=== PATIENT | female | born 1980 | race Caucasian/White ===

== ENCOUNTER 2019-10-22 14:06 | Outpatient (CLI) | payer OTHER | END 2019-10-22 14:07 | disposition home or self-care (01) | LOC: DTY/OP 14:06 | PROVIDERS: ATTEND Family Medicine | DX: O24.415 Gestational diabetes mellitus in pregnancy, controlled by oral hypoglycemic drugs (principal) | CPT/HCPCS: 97802 ==

== ENCOUNTER 2020-01-09 14:58 | Inpatient (IN) | payer OTHER ==
[2020-01-09 15:36] VITALS: BMI 36.1
[2020-01-09 18:05] LABS: Creatinine, Urine 43.6 mg/dL (47-110)
[2020-01-09 18:34] LABS: ALT (SGPT) 16 U/L (8-55); AST (SGOT) 24 U/L (5-34); Albumin 3.1 g/dL (3.5-5.0); Alkaline Phosphatase 135 U/L (40-110); Anion Gap 14 mmol/L (10-20); BUN (Urea Nitrogen) 15 mg/dL (7.0-18.7); Bilirubin, Total 0.4 mg/dL (0.2-1.2); Calc. Creatinine Clearance 159 mL/min (70-130); Calcium 8.8 mg/dL (7.8-10.44); Carbon Dioxide 21 mmol/L (22-29); Chloride 105 mmol/L (98-107); Estimated GFR-MDRD 78; Globulin 3.3 g/dL (2.4-3.5); Glucose 91 mg/dL (70-105); Potassium 3.8 mmol/L (3.5-5.1); Protein, Total 6.4 g/dL (6.0-8.3); Sodium 136 mmol/L (136-145); Uric Acid 7.1 mg/dL (2.6-6.0)
[2020-01-09] MEDS ORDERED: hydrALAZINE 20 MG/ML VIAL SLOW IVP PRN (18:45)
[2020-01-09] MEDS ORDERED: Ondansetron PF 4 MG/2 ML Vial IVP PRN (18:45)
[2020-01-09] MEDS ORDERED: Lactated Ringer's 1,000 ML IV SCH (19:30)
[2020-01-09] MEDS ORDERED: Bicitra 30 ML UDCUP PO SCH (19:30)
[2020-01-09] MEDS ORDERED: CEFAZOLIN 2 GM in Premix Bag 1 BAG IVPB SCH (19:30)
[2020-01-09 20:52] LABS: Hemoglobin 11.6 g/dL (12.0-16.0); Mean Corpuscular HGB CONC 35.6 g/dL (32.0-36.0); Mean Corpuscular Hemoglobin 30.4 pg (27.0-31.0); Mean Corpuscular Volume 85.3 fL (78.0-98.0); Mean Platelet Volume 9.5 fL (7.4-10.4); Platelet Count 161 thou/uL (130-400); RBC Distribution Width 13.8 % (11.5-14.5); Red Blood Cell (RBC) Count 3.82 mill/uL (4.20-5.40); White Blood Cell (WBC) Count 6.8 thou/uL (4.8-10.8)
[2020-01-09] MEDS ORDERED: Insulin Glargine 10 UNITS in Pre-Filled Syringe 1 EACH SC SCH (21:00)
[2020-01-09 21:30] LABS: Syphilis Antibody Nonreactive (Nonreactive); Syphilis Antibody Index 0.03 S/CO (<1.00 Non-Reactive)
[2020-01-09] MEDS ORDERED: Zolpidem Tartrate 5 MG TAB PO SCH (22:30)
[2020-01-10 00:40] LABS: HBSAg Index 0.18 S/CO (0-0.99); Hep B Surf Ag Non-Reactive S/CO (NonReactive)
--- NOTE | 2020-01-10 05:12 | HP ---
PRIMARY OB: Dr. Ольга Krishnan. CHIEF COMPLAINT: Elevated blood pressures. HISTORY OF PRESENT ILLNESS: The patient is a 39-year-old G4, P2 female with an intrauterine at 38 weeks and a day who presented to Labor and Delivery with complaints of elevated blood pressures at home. The patient reports her repeated blood pressures over several hours had consistently been in the mild range with diastolic pressures in the 90s and occasional systolic pressures in the 140s. The patient came to Labor and Delivery for evaluation. She denies headache currently, chest pain, shortness of breath, nausea, vomiting, diarrhea, constipation, hip problems, knee problems, muscle weakness, vaginal bleeding, leakage of fluid, urinary urgency or frequency, any new rashes. PAST MEDICAL HISTORY: ADHD and general anxiety disorder, also gestational diabetes on Lantus and Humalog. PAST SURGICAL HISTORY: She has had 2 prior C-sections and has had right shoulder surgery and laparoscopic knee surgery. ALLERGIES: NO KNOWN DRUG ALLERGIES. MEDICATIONS: 1. vitamins. 2. Lantus 26 units daily. 3. Humalog 6 to 8 units p.r.n. with elevated blood sugars postprandial. REVIEW OF SYSTEMS: Per HPI. PHYSICAL EXAMINATION: VITAL SIGNS: Blood pressure on initial presentation 133/76, heart rate of 88, respiratory rate 16, and temperature 98.0. However, after couple of hours of observation, patient began spiking pressures into the 140s, 150s over 80s over the course of an hour and a half with the highest blood pressure being 154/86. GENERAL: The patient is alert, oriented, cooperative, and pleasant to interact with. HEAD: Normocephalic and atraumatic. LUNGS: Clear to auscultation bilaterally. HEART: Regular rate and rhythm. ABDOMEN: Gravid, soft, nontender. EXTREMITIES: DTRs are 1 to 2+ without clonus. There is no edema. Negative Lilly sign. heart tracing shows the fetus with a baseline in the 130s with moderate long-term variability, positive 15 x 15 accelerations. Tocometer showing contractions, irregular nature from every minute to 6 minutes, only occasionally felt by the patient. LABORATORY DATA: Labs are significant with a ernevia-ea-fffethkhnu ratio of 0.45. Otherwise, the rest of her labs is unremarkable. White count is 6.8, hemoglobin 11.6, hematocrit 32.6, and platelets 161,000. Sodium 136, potassium 3.8, chloride of 105, bicarb of 21, BUN of 15, creatinine 0.82, uric acid of 7.1, AST of 24, ALT of 16, alkaline phosphatase of 135, and albumin 3.1. Syphilis and hepatitis B surface antigen, nonreactive. ASSESSMENT AND PLAN: The patient is a 39-year-old female with an intrauterine at 38 weeks gestation with a diagnosis of preeclampsia without severe features. The patient is scheduled for repeat next week. However, given this new diagnosis and discussing with Dr. Krishnan, plan now is for the patient to have a tomorrow. The patient will be admitted for blood pressure monitoring and will be prepared for surgery in the morning at 07:30. The patient has been given preeclamptic precautions. Fetus is reactive with a category 1 tracing. Job ID: [id number]
[2020-01-10] MEDS: Lactated Ringer's 1,000 ML IV SCH ×3 (06:28→20:40)
[2020-01-10] MEDS ORDERED: Bicitra 30 ML UDCUP ONE (07:04)
[2020-01-10] MEDS ORDERED: MORPHINE 5 MG/10 ML PF VIAL ONE (07:06)
[2020-01-10] MEDS ORDERED: EPHEDRINE 25 MG/5 ML SYRINGE ONE (07:07)
[2020-01-10] MEDS ORDERED: Oxytocin 10 UNITS/ML VIAL ONE ×2 (07:07→08:44)
[2020-01-10] MEDS ORDERED: Ondansetron PF 4 MG/2 ML Vial ONE (07:07)
[2020-01-10] MEDS ORDERED: FLU VACC QS2019-20(6MOS UP)/PF 60 MCG/0.5 ML SYRINGE IM ONE (09:00)
--- NOTE | 2020-01-10 09:03 | OP ---
DATE OF PROCEDURE: 01/10/2020 PREOPERATIVE DIAGNOSES: 1. A 38-week intrauterine . 2. Previous section x2. 3. Gestational hypertension. 4. Gestational diabetes, insulin controlled. INDICATIONS FOR PROCEDURE: Chriss is a 39-year-old white female patient, who had a planned scheduled for next week at 39 weeks, who presented to Labor and Delivery with elevated blood pressures. She had no symptoms. Laboratory studies essentially within normal limits with diagnosis of gestational hypertension. Decision made to admit overnight for planned the following morning. PROCEDURE PERFORMED: Repeat low-transverse section. POT PUNCHER: Dr. Ross, followed by Dr. Farooq. SECOND SCALE AND SKIP CAR OPERATOR: Dominique Carr, -3. ANESTHESIA: Spinal anesthetic. COMPLICATIONS: No complications. DESCRIPTION OF PROCEDURE: The patient was taken to the operating room. After spinal anesthetic, the patient was placed in the supine position. A wedge was placed under her right flank. A Raymond catheter was placed in the urinary bladder and the abdomen was prepped and draped in usual sterile technique. A Pfannenstiel incision was made through the old scar. Subcutaneous tissue opened with sharp dissection. The fascia was opened with sharp dissection. Peritoneum opened with sharp and blunt dissection. It was noted that the abdomen was still with a gravid uterus and there were no adhesions. An Tien O retractor was placed without difficulty and a low-transverse incision was made on the uterus. Membranes were ruptured and clear fluid was encountered. A viable male infant was delivered from vertex presentation without difficulty. breathed and cried spontaneously. Nose and mouth were bulb suctioned. The was dried. After approximately 30 seconds, the cord was clamped and cut. Infant was handed to the care of the Neonatology Team. Cord blood was obtained and the placenta was delivered spontaneously with traction and appeared intact. A wet lap was used to wipe clean the uterus. Ring forceps were placed over the hysterotomy edges. The hysterotomy was then closed in one layer continuous fashion using 0 Monocryl suture. It was noted that there was good hemostasis. There was minimal bleeding from the peritoneal edges, which was cauterized. Wound was irrigated and no further bleeding and the fascia was then closed in continuous fashion using 0 Vicryl suture. Sponge and instrument counts were correct. A running layer of 2-0 plain was placed to approximate the subcutaneous tissue and marissa were then applied to close the skin. The patient tolerated the procedure well, to go to recovery room in good condition. It was noted that the baby is a male infant, weight 10 pounds 8 ounces. Apgars pending at this time, to go to NICU, requiring O2 therapy. QBL pending at this time. Job ID: [id number]
[2020-01-10] MEDS ORDERED: diphenhydrAMINE 50 MG/ML VIAL IVP PRN (09:47)
[2020-01-10] MEDS ORDERED: L&D-Morphine 4 MG/ML VIAL SLOW IVP PRN (09:47)
[2020-01-10] MEDS ORDERED: Promethazine HCl 25 MG/ML VIAL IM PRN (09:47)
[2020-01-10] MEDS ORDERED: Ondansetron HCl/PF 4 MG/2 ML Vial IVP PRN (09:47)
[2020-01-10] MEDS ORDERED: Meperidine HCl/PF 25 MG/ML VIAL SLOW IVP PRN (09:47)
[2020-01-10] MEDS ORDERED: Naloxone HCl 0.4 mg/ml Vial IVP PRN ×2 (09:47)
[2020-01-10] MEDS ORDERED: HYDROmorphone 2 MG/ML VIAL SLOW IVP PRN (09:47)
[2020-01-10] MEDS ORDERED: Ondansetron PF 4 MG/2 ML Vial IVP PRN ×2 (09:47→11:31)
[2020-01-10] MEDS ORDERED: Naloxone HCl 0.4 mg/ml Vial IV PRN (09:47)
[2020-01-10] MEDS ORDERED: Promethazine HCl 25 MG SUPP PR PRN (09:47)
[2020-01-10] MEDS ORDERED: Ketorolac Tromethamine 30 MG/ML VIAL ONE (09:57)
[2020-01-10] MEDS ORDERED: Ketorolac Tromethamine 30 MG/ML VIAL IVP SCH (10:00)
[2020-01-10] MEDS ORDERED: Communication Order-Pharmacy FS SCH (10:00)
[2020-01-10] MEDS: Ketorolac Tromethamine 30 MG/ML VIAL IVP PRN ×2 (10:02→18:52)
[2020-01-10] MEDS ORDERED: diphenhydrAMINE 25 MG CAP PO PRN (11:31)
[2020-01-10] MEDS ORDERED: Dextrose 5% in Water 1,000 ML IV PRN (11:31)
[2020-01-10] MEDS ORDERED: hydrALAZINE 20 MG/ML VIAL SLOW IVP PRN (11:31)
[2020-01-10] MEDS ORDERED: Lanolin Ointment 7 GM TUBE TOP PRN (11:31)
[2020-01-10] MEDS ORDERED: Bisacodyl 10 MG SUPP PR PRN (11:31)
[2020-01-10] MEDS ORDERED: Acetaminophen/Codeine 30-300mg Tablet PO PRN (11:31)
[2020-01-10] MEDS ORDERED: Dextrose 50% Abboject 50 ML SYRINGE SLOW IVP PRN (11:31)
[2020-01-10] MEDS ORDERED: Acetaminophen 325 MG TAB PO PRN (11:31)
[2020-01-10] MEDS ORDERED: NS / Oxytocin 40 units/1000ml 1,000 ML ONE (14:59)
[2020-01-10] MEDS: HumaLOG 300 UNITS/3 ML VIAL SC PRN (22:25)
[2020-01-10] MEDS: Labetalol 100 MG TAB PO SCH (22:27)
[2020-01-10] MEDS: Simethicone Chewable 80 MG TAB PO PRN (22:27)
[2020-01-10] MEDS: Docusate Calcium (SURFAK) 240 MG CAP PO SCH (22:32)
[2020-01-11] MEDS: Ferrous Sulfate 325 MG TAB PO SCH ×3 (00:48→22:04)
[2020-01-11] MEDS: Ketorolac Tromethamine 30 MG/ML VIAL IVP PRN (01:04)
[2020-01-11] MEDS: HYDROcodone/Acetaminophen 5/325 mg Tablet PO PRN ×4 (05:55→22:02)
[2020-01-11 06:50] LABS: Hemoglobin 9.4 g/dL (12.0-16.0); Mean Corpuscular HGB CONC 34.4 g/dL (32.0-36.0); Mean Corpuscular Hemoglobin 29.9 pg (27.0-31.0); Mean Platelet Volume 8.7 fL (7.4-10.4); Platelet Count 115 thou/uL (130-400); RBC Distribution Width 14.1 % (11.5-14.5); Red Blood Cell (RBC) Count 3.15 mill/uL (4.20-5.40); White Blood Cell (WBC) Count 7.7 thou/uL (4.8-10.8)
[2020-01-11] MEDS: Prenatal Vitamin 1 TAB PO SCH (09:28)
[2020-01-11] MEDS: Labetalol 100 MG TAB PO SCH ×2 (09:28→22:05)
[2020-01-11] MEDS: Simethicone Chewable 80 MG TAB PO PRN ×3 (09:29→22:05)
[2020-01-11] MEDS: Docusate Calcium (SURFAK) 240 MG CAP PO SCH ×2 (09:29→22:04)
[2020-01-11] MEDS: HumaLOG 300 UNITS/3 ML VIAL SC PRN ×2 (11:21→20:19)
[2020-01-11] MEDS: metFORMIN 500 MG TAB PO SCH (17:43)
[2020-01-12] MEDS: HYDROcodone/Acetaminophen 5/325 mg Tablet PO PRN ×5 (03:39→21:00)
[2020-01-12] MEDS: Simethicone Chewable 80 MG TAB PO PRN ×3 (03:39→21:01)
[2020-01-12] MEDS: metFORMIN 500 MG TAB PO SCH ×2 (10:21→18:09)
[2020-01-12] MEDS: FLUoxetine HCl 20 MG CAP PO SCH (10:21)
[2020-01-12] MEDS: Prenatal Vitamin 1 TAB PO SCH (10:21)
[2020-01-12] MEDS: Ferrous Sulfate 325 MG TAB PO SCH ×2 (10:22→21:01)
[2020-01-12] MEDS: Labetalol 100 MG TAB PO SCH ×2 (10:22→21:01)
[2020-01-12] MEDS: Docusate Calcium (SURFAK) 240 MG CAP PO SCH ×2 (10:22→21:01)
[2020-01-12] MEDS: HumaLOG 300 UNITS/3 ML VIAL SC PRN (12:03)
[2020-01-13] MEDS: HYDROcodone/Acetaminophen 5/325 mg Tablet PO PRN ×2 (02:46→08:37)
[2020-01-13] MEDS: Prenatal Vitamin 1 TAB PO SCH (08:36)
[2020-01-13] MEDS: metFORMIN 500 MG TAB PO SCH (08:36)
[2020-01-13] MEDS: Labetalol 100 MG TAB PO SCH (08:36)
[2020-01-13] MEDS: Docusate Calcium (SURFAK) 240 MG CAP PO SCH (08:36)
[2020-01-13] MEDS: Ferrous Sulfate 325 MG TAB PO SCH (08:37)
[2020-01-13] MEDS: FLUoxetine HCl 20 MG CAP PO SCH (08:37)
[2020-01-13 10:12] VITALS: BP 129/80; TEMP 98.1
== END 2020-01-13 12:18 | disposition home or self-care (01) | DRG 788 ==
LOC: L&D/OP 14:58 → L&D 20:00 → 3SW 01-10 12:29
PROVIDERS: ADMIT Family Medicine; ATTEND Family Medicine
PROC: 10D00Z1 Extraction of Products of Conception, Low, Open Approach (ICD-10-PCS; principal; 2020-01-10)
DX: O24.424 Gestational diabetes mellitus in childbirth, insulin controlled (principal); F41.1 Generalized anxiety disorder; O99.344 Other mental disorders complicating childbirth; F90.9 Attention-deficit hyperactivity disorder, unspecified type; O34.211 Maternal care for low transverse scar from previous cesarean delivery; O13.4 Gestational [pregnancy-induced] hypertension without significant proteinuria, complicating childbirth; Z37.0 Single live birth; Z3A.38 38 weeks gestation of pregnancy
CPT/HCPCS: 36415; 36416; 51702; 80053; 82043; 82570; 84156; 84550; 85025; 85027; 86780; 86850; 86900; 86901; 87340; 99285; J0360; J0690; J1815; J1885; J2274; J2405; J2590

== ENCOUNTER 2020-02-21 10:30 | Outpatient (CLI) | payer OTHER ==
--- NOTE | 2020-02-21 13:36 | ULT ---
COMPLETE ABDOMINAL ULTRASOUND: 02/21/20 HISTORY: Elevated LFTs. TECHNIQUE: Multiplanar lopez scale and color Doppler images were obtained in a complete abdominal ultrasound. FINDINGS: The liver demonstrates increased echogenicity without focal lesions or intrahepatic ductal dilatation . The gallbladder is normal without stones, sludge, gallbladder wall thickening or pericholecystic fl uid. The common bile duct is normal measuring 3 mm. The aorta and inferior vena cava are normal in caliber. The visualized portions of the pancreas are u nremarkable. The spleen is normal in echogenicity without focal lesions and measures 12.9 cm in lengt h. Both kidneys are normal in echogenicity without hydronephrosis or calculi and measures 11.1 and 11.2 cm in length on the right and left, respectively. IMPRESSION: Fatty liver. POS: [facility]
== END 2020-02-21 10:31 | disposition home or self-care (01) ==
LOC: SCSULT 10:30 → MERGE 10:30 → SCSULT 10:31
PROVIDERS: ATTEND Family Medicine
DX: R74.8 Abnormal levels of other serum enzymes (principal); K76.0 Fatty (change of) liver, not elsewhere classified
CPT/HCPCS: 93975

== ENCOUNTER 2024-05-06 11:31 | Observation (INO) | payer BC ==
[2024-05-06 12:01] VITALS: BMI 26.6
[2024-05-06] MEDS ORDERED: fentaNYL 50 mcg/mL 1 mL Vial ONE ×3 (14:40→20:00)
[2024-05-06] MEDS ORDERED: fentaNYL PF 100 MCG/2 ML SYRINGE ONE (17:57)
[2024-05-06] MEDS ORDERED: PROPOFOL 20 ML ONE (17:57)
[2024-05-06] MEDS ORDERED: EPINEPHrine 1 MG/ML VIAL ONE (18:13)
[2024-05-06] MEDS ORDERED: Bupivacaine 0.25% HCL 30 ML VIAL ONE (18:13)
[2024-05-06] MEDS ORDERED: SUCCINYLCHOLINE/SOD CL,ISO/PF 200 MG/10 ML SYRINGE FS ONE (18:18)
[2024-05-06] MEDS ORDERED: MINERAL OIL/WHITE PETROLATUM 3.5 GM TUBE ONE (18:19)
[2024-05-06] MEDS ORDERED: CEFAZOLIN 1 GM VIAL ONE (18:36)
[2024-05-06] MEDS ORDERED: Ondansetron PF 4 MG/2 ML Vial ONE (18:39)
[2024-05-06] MEDS ORDERED: Metoclopramide HCl 10 MG (2 mL) VIAL ONE (18:39)
[2024-05-06] MEDS ORDERED: Dexamethasone 4 mg/ml Vial ONE (18:39)
[2024-05-06] MEDS ORDERED: Ketorolac Tromethamine 30 MG (1 mL) VIAL ONE (18:39)
[2024-05-06] MEDS ORDERED: SUGAMMADEX SODIUM 200 MG/2 ML VIAL ONE (19:13)
[2024-05-06] MEDS ORDERED: HYDROmorphone 2 MG/ML VIAL SLOW IVP PRN (19:18)
[2024-05-06] MEDS ORDERED: Ondansetron HCl/PF 4 MG/2 ML Vial IVP PRN (19:18)
[2024-05-06] MEDS ORDERED: Promethazine HCl 25 MG/ML VIAL IM PRN (19:18)
[2024-05-06] MEDS ORDERED: HYDROmorphone 0.5 MG/0.5 ML SYRINGE ONE (19:41)
[2024-05-07] MEDS: Acetaminophen/Codeine 30-300mg Tablet PO PRN (08:53)
[2024-05-07 10:58] VITALS: BP 114/69; TEMP 98.3
== END 2024-05-07 11:35 | disposition home or self-care (01) ==
LOC: SJJU 11:31
PROVIDERS: ADMIT Student in an Organized Health Care Education/Training Program; ATTEND Student in an Organized Health Care Education/Training Program
PROC: 0FT44ZZ Resection of Gallbladder, Percutaneous Endoscopic Approach (ICD-10-PCS; principal; 2024-05-07)
DX: K80.12 Calculus of gallbladder with acute and chronic cholecystitis without obstruction (principal); Z79.899 Other long term (current) drug therapy
CPT/HCPCS: 88304; C1889; J0171; J0665; J0690; J1100; J1170; J1885; J2405; J2704; J2765; J3010

== ENCOUNTER 2024-12-12 15:23 | Outpatient (CLI) | payer BC | END 2024-12-12 15:24 | disposition home or self-care (01) | LOC: BICMAMMO 15:23 | PROVIDERS: ATTEND Family Medicine | DX: Z12.31 Encounter for screening mammogram for malignant neoplasm of breast (principal); Z80.3 Family history of malignant neoplasm of breast | CPT/HCPCS: 77063; 77067 ==